=== PATIENT | male | born 1990 | race Caucasian/White ===

== ENCOUNTER 2018-10-02 13:03 | Emergency (ER) | payer SELFPAY ==
[~2018-10-02] VITALS: Ht 170.2 cm; Wt 85.7 kg
[2018-10-02 13:08] VITALS: Ht 170.2 cm; Wt 85.7 kg
[2018-10-02 13:55] VITALS: BP 137/68
== END 2018-10-02 13:55 | disposition home or self-care (01) ==
LOC: ED 13:03
DX: H10.212 Acute toxic conjunctivitis, left eye (principal)